=== PATIENT | male | born 1990 | race African-American/Black ===

== ENCOUNTER 2018-10-09 20:07 | Emergency (ER) | payer OTHER ==
[~2018-10-09] VITALS: Ht 188 cm; Wt 78.0 kg
[2018-10-09 20:15] VITALS: BP 136/93
[2018-10-09] MEDS ORDERED: CEPH-264 PO (20:50)
--- NOTE | 2018-10-09 20:50 | PHYS DOC ---
Adult General Chief Complaint Chief Complaint: SORE THROAT HPI HPI Patient is a 28 year old male who presents with a sore throat 3 days with nasal congestion and intermittent body aches. The patient denies earaches or fever. He states that it is very painful to swallow. He is physically able to swallow and can handle his own secretions. He has tried [id number] medication with little relief. He states that it is more painful to the left side than the right. Review of Systems Review of Systems Constitutional: Denies fever or chills [] Eyes: Denies change in visual acuity, redness, or eye pain [] HENT: See history of present illness Respiratory: Denies cough or shortness of breath [] Cardiovascular: No additional information not addressed in HPI [] GI: Denies abdominal pain, nausea, vomiting, bloody stools or diarrhea [] : Denies dysuria or hematuria [] Musculoskeletal: Denies back pain or joint pain [] Integument: Denies rash or skin lesions [] Neurologic: Denies headache, focal weakness or sensory changes [] Endocrine: Denies polyuria or polydipsia [] All other systems were reviewed and found to be within normal limits, except as documented in this note. Current Medications Current Medications Current Medications Medications (Trade) Dose Ordered Sig/Noreen Start Time Stop Time Status Last Admin Dose Admin Dexamethasone Sodium Phosphate (Decadron) 10 mg 1X ONCE 10/09/18 21:15 10/09/18 21:15 DC 10/09/18 21:04 10 MG Allergies Allergies Allergies Coded Allergies Type Severity Reaction Last Updated Verified No Known Drug Allergies 10/09/18 No Physical Exam Physical Exam Constitutional: Well developed, well nourished, no acute distress, non-toxic appearance. [] HENT: Normocephalic, atraumatic, bilateral external ears normal, pharyngeal erythema with edema, no oral exudates, nose normal. [] Eyes: PERRLA, EOMI, conjunctiva normal, no discharge. [] Neck: Normal range of motion, positive anterior cervical adenopathy, supple, no stridor. [] Cardiovascular:Heart rate regular rhythm, no murmur [] Lungs & Thorax: Bilateral breath sounds clear to auscultation [] Skin: Warm, dry, no erythema, no rash. [] Neurologic: Alert and oriented X 3, normal motor function, normal sensory function, no focal deficits noted. [] Psychologic: Affect normal, judgement normal, mood normal. [] Current Patient Data Vital Signs Vital Signs Date Time Temp Pulse Resp B/P (MAP) Pulse Ox O2 Delivery O2 Flow Rate FiO2 10/09/18 20:15 98.8 105 16 136/93 (107) 100 Room Air 98.8 EKG EKG [] Radiology/Procedures Radiology/Procedures [] Course & Med Decision Making Course & Med Decision Making Pertinent Labs and Imaging studies reviewed. (See chart for details) []Rapid strep was negative but given this patient's symptoms and the amount of edema to his tonsils he is going to be treated presumptively. He was given a dose of Decadron in the emergency department. Dragon Disclaimer [employer] Disclaimer This electronic medical record was generated, in whole or in part, using a voice recognition dictation system. Departure Departure Impression: Primary Impression: Pharyngitis Disposition: HOME, SELF-CARE Condition: STABLE Referrals: NO PCP (PCP) Patient Instructions: Viral and Bacterial Pharyngitis Additional Instructions: Take the medication as directed. If worsening return to the emergency department. If not improving in 3 days follow-up with your primary care provider Scripts Cephalexin (KEFLEX) 500 Mg Capsule 1 CAP PO TID for infection, #30 CAP Prov: YONATAN OSEGUERA APRN 10/09/18 YONATAN OSEGUERA APRN Oct 09, 2018 20:50
[2018-10-09] MEDS ORDERED: DEXAMETHASONE SOD PHOS 4 MG/ML VIAL PO ONE (21:15)
== END 2018-10-09 20:43 | disposition home or self-care (01) ==
LOC: ER 20:07
DX: J02.9 Acute pharyngitis, unspecified (principal); R09.81 Nasal congestion; M79.10 Myalgia, unspecified site
CPT/HCPCS: 87880; 99283; J1100